=== PATIENT | female | born 1950 | race African-American/Black ===

== ENCOUNTER → 2018-06-25 | Outpatient (CLI) | payer MEDICARE, MEDICAID ==
--- NOTE | 2018-06-25 16:57 | RAD ---
Left hand, 3 views, 06/25/2018: HISTORY: Pain and swelling to second digit There are mild degenerative changes at scattered interphalangeal joints and the first MCP and CMC joints. A tiny well-defined calcific density adjacent to the DIP joint of the index finger appears to be due to old trauma. No acute fracture or dislocation is identified. IMPRESSION: No acute bony abnormality is detected. Electronically signed by: Isaak Saavedra MD (06/25/2018 4:53 PM) [facility]
== END | disposition home or self-care (01) ==
LOC: RAD 16:11
PROVIDERS: ATTEND Internal Medicine Cardiovascular Disease
DX: M25.442 Effusion, left hand (principal)
CPT/HCPCS: 73130; 87880

== ENCOUNTER → 2019-10-15 | Outpatient (CLI) | payer MEDICARE, MEDICAID ==
[~2019-10-15] MED LIST: IOHEXOL 240 MG/ML 50ML VIAL. PO ONE
--- NOTE | 2019-10-15 16:14 | KCIC ---
Abdominal ultrasound without comparison for abdominal discomfort, hernia surgery 20 years ago, current symptoms feel the same. Technique and findings: Real-time grayscale and color Doppler evaluation of the abdominal organs is performed. Midline structures including the pancreas, IVC, and aorta are poorly demonstrated due to habitus and overlying bowel gas. Spleen is likewise obscured. Visualized portions of the pancreatic head are normal. Portal vein is patent and hepatopedal. The liver measures 13.2 cm and is free of any focal parenchymal abnormality. No intra or extra hepatic biliary ductal dilatation is seen. The common bile duct measures 4 mm in diameter. The right kidney measures 10.0 x 4.1 x 4.7 cm and the left measures 10.0 x 3.6 x 4.2 cm. No hydronephrosis or perinephric fluid. There is a simple cyst arising from the inferior lateral aspect of the left kidney. No free or loculated fluid collections are identified. Targeted imaging in all 4 quadrants in the periumbilicus reveals no evidence of herniation or abdominal wall defect. IMPRESSION: 1. Simple left renal cyst. 2. Limited evaluation of the midline structures. 3. No evidence of periumbilical hernia. Electronically signed by: Willard Mao MD (10/15/2019 4:11 PM) [facility]
--- NOTE | 2019-10-15 16:21 | KCIC ---
CT ABDOMEN WO CONTRAST Indication: Abdominal pain, hernia repair Technique: Noncontrast CT imaging was performed of the abdomen, multiplanar reconstruction images submitted. Oral contrast was given. No intravenous contrast was given due to inability to obtain adequate intravenous access. One or more of the following individualized dose reduction techniques were utilized for this examination: 1. Automated exposure control 2. Adjustment of the mA and/or kV according to patient size 3. Use of iterative reconstruction technique. Comparison: None Findings: There is reticular density of the right lower lobe other lung which may be component of fibrotic change or atelectasis. There is fairly prominent coronary calcification. Accurate evaluation of the abdominal visceral organs is limited without intravenous contrast, no obvious focal abnormality of the liver, spleen, pancreas. Gallbladder is present without obvious intraluminal abnormality by CT. Some calcifications near the pancreas are likely due to vascular calcification. There are 3 small right renal calculi with the largest about 0.2 cm. There are 2 small left renal calculi with the largest about 0.2 cm. There is no hydronephrosis of either kidney, no ureteral calculus identified in the abdomen. Renal parenchyma is suboptimally evaluated on this noncontrast exam. There is hypodense lesion of the inferior left kidney on the order of about 2 cm with density measurements of a cyst 2-3 Hounsfield units. There is small right adrenal nodule about 1 cm, density measurements not of a lipid rich adenoma 23 Hounsfield units. There is no significant left adrenal nodularity. There is a small ventral fat-containing hernia in the abdomen best seen axial image 38 series 2, neck estimated about 0.4 cm transverse dimension and hernia sac about 2 cm transverse, no internal bowel. No bowel containing hernia is identified. Bowel is not dilated. Appendix caliber is within normal limits. There is scattered calcified plaque of the abdominal aorta and visualized iliac arteries. There is also some calcified plaque near the celiac and superior mesenteric arteries. There is multilevel thoracolumbar degenerative disc disease. There is grade 1 anterior spondylolisthesis at L4-5. There is what likely represents a gas containing extrusion extending below the L5-S1 intervertebral disc space level in the left lateral recess with contact of the descending left S1 nerve root. There is likely moderate to severe spinal stenosis at L4-5. There is moderate to severe narrowing of left L5-S1 neural foramen. IMPRESSION: 1. There are small nonobstructive bilateral renal calculi. 2. There is small ventral fat-containing hernia, no internal bowel. 3. There is small nonspecific right adrenal nodule, indeterminate density measurements for lipid rich adenoma. 4. There is suspected moderate to severe spinal stenosis at L4-5. There is what likely represents a gas containing extrusion extending below the L5-S1 intervertebral disc space in the left lateral recess with contact of the descending left S1 nerve root. 5. There is coronary calcification. 6. There is inferior left renal cyst. Electronically signed by: Teodoro Peng MD (10/15/2019 4:19 PM) [id number]
== END | disposition home or self-care (01) ==
LOC: KCIC US 08:20
PROVIDERS: ATTEND Internal Medicine Cardiovascular Disease
DX: N28.1 Cyst of kidney, acquired (principal); N20.0 Calculus of kidney; K45.8 Other specified abdominal hernia without obstruction or gangrene; E27.8 Other specified disorders of adrenal gland; M48.061 Spinal stenosis, lumbar region without neurogenic claudication; M51.34 Other intervertebral disc degeneration, thoracic region; I25.10 Atherosclerotic heart disease of native coronary artery without angina pectoris
CPT/HCPCS: 74150; 76700; Q9966

== ENCOUNTER → 2020-11-24 | Outpatient (CLI) | payer MEDICARE, MEDICAID ==
--- NOTE | 2020-11-24 11:14 | KCIC ---
EXAM: Bilateral digital screening mammogram with tomosynthesis. HISTORY: 70-year-old female presents for screening mammography. TECHNIQUE: Full-field digital craniocaudal and mediolateral oblique 2D and 3D tomosynthesis images of both breasts are obtained for evaluation. Computer aided detection was applied. COMPARISON: 08/14/2014 BREAST PARENCHYMAL DENSITY: Level B - Scattered fibroglandular densities. FINDINGS: There is no new suspicious mass, microcalcification or region of architectural distortion. There are few tiny stable circumscribed nodular densities within the left breast, allowing for differ ences in imaging technique. The long-term stability favors a benign etiology such as cysts or intrama mmary lymph nodes. IMPRESSION: BI-RADS Category 2: Benign finding(s). RECOMMENDATION: Annual mammography is recommended. If your mammogram demonstrates that you have dense breast tissue, which could hide abnormalities, and if you have other risk factors for breast cancer that have been identified, you might benefit from s upplemental screening tests that may be suggested by your ordering physician. Dense breast tissue, i n and of itself, is a relatively common condition. This information is not provided to cause undue c oncern, but rather to raise your awareness and to promote discussion with your physician regarding th e presence of other risk factors, in addition to dense breast tissue. A report of your mammography re sults will be sent to you and your physician. You should contact your physician if you have any ques tions or concerns regarding this report. Mammography is a sensitive method for finding small breast cancers, but it does not detect them all a nd is not a substitute for careful clinical examination. A negative mammogram does not negate a clin ically suspicious finding and should not result in delay in biopsying a clinically suspicious abnorma lity. PQRS compliance statement - Patient information was entered into a reminder system with a target due date for the next mammogram. "Our facility is accredited by the [employer] Mammography Program." Electronically signed by: Beata Ross MD (11/24/2020 11:12 AM) [id number]
== END ==
LOC: KCIC MAMMO 08:16
PROVIDERS: ATTEND Internal Medicine Cardiovascular Disease
DX: Z12.31 Encounter for screening mammogram for malignant neoplasm of breast (principal)
CPT/HCPCS: 77063; 77067